=== PATIENT | female | born 1950 | race Caucasian/White ===

== ENCOUNTER 2021-08-01 10:44 | Emergency (ER) | payer MEDICARE, MEDICAID ==
[2021-08-01 10:59] VITALS: BP 112/67; PULSE 63
--- NOTE | 2021-08-01 11:08 | EDM.PDOC ---
<MarlyPrasanth Zachary - Last Filed: 08/01/21 19:53> ED HPI GENERAL MEDICAL PROBLEM - General Chief Complaint: Respiratory Problem Stated Complaint: [facility] Time Seen by Provider: 08/01/21 11:02 Source of Information: Reports: Patient, EMS, [facility] Records History Limitations: Reports: Altered Mental Status, Physical Impairment (Appears to be fairly ill.), Other (Hypoxic on room air. Maintaining sats around 91 to 92% on 2-1/2 L/min by nasal cannula) - History of Present Illness INITIAL COMMENTS - FREE TEXT/NARRATIVE: 70-year-old female presents to the ED from jail in [facility]. She presents per ambulance. She developed signs and symptoms of COVID-19 illness on July 27 and tested + July 29. She has been on oxygen at 2 L/min by nasal cannula but this morning her O2 sats were staying below 90% on 2 L and they had to increase it to 3 L. She is not eating or drinking hardly anything at all. No nausea vomiting or diarrhea. Paroxysmal nonproductive cough ,severe lethargy, with headache and myalgia. She is unvaccinated. snf nurses felt that she had altered level of consciousness this morning with more confusion. She answers all my questions appropriately although she prefers not to answer any questions and is a poor historian. CODE STATUS is listed as full code. Onset: Sudden Onset Date: 07/27/21 Duration: Day(s):, Getting Worse Location: Reports: Head (Paroxysmal nonproductive cough headache), Chest, Generalized (Generalized myalgia and weakness), Other (Decreased appetite severely) Quality: Reports: Ache, Other (Loss of appetite with weakness. Hypoxia and presents on 2 L of oxygen per nasal cannula.) Severity: Moderate Improves with: Reports: None Worsens with: Reports: None Context: Reports: Sick Contact (Apparently other personnel are sick with COVID- 19 in the [facility]). Denies: Activity, Exercise, Lifting Associated Symptoms: Reports: Confusion, Cough, Fever/Chills, Headaches, Loss of Appetite, Malaise, Shortness of Breath, Weakness. Denies: cough w sputum, Diaphoresis, Nausea/Vomiting, Rash, Seizure, Syncope Treatments PUFF IRONER: Reports: Acetaminophen, Other (see below) (Tramadol intermittently for pain relief) - Related Data Allergies Allergy/AdvReac Type Severity Reaction Status Date / Time clindamycin Allergy Severe Difficulty Verified 08/01/21 10:59 Breathing Latex, Natural Rubber Allergy Severe unknown Verified 08/01/21 10:59 sodium phosphate Allergy Severe unknown Verified 08/01/21 10:59 raspberry AdvReac Severe Diarrhea Verified 08/01/21 10:59 Home Meds: Home Meds Acetaminophen 325 mg PO Q4H PRN 08/01/21 [History] Ascorbic Acid/Multivit-Min [Emergen-C 1,000 mg Packet] 1,000 mg PO DAILY 08/01/21 [History] Bacitracin 1 dose TOP DAILY 08/01/21 [History] Baclofen 20 mg PO TID 08/01/21 [History] Dextran 70/Hypromellose [Artificial Tears] 1 each OP QID 08/01/21 [History] Diclofenac Sodium [Voltaren 1% Gel] 1 applic TOP BID 08/01/21 [History] Ferrous Sulfate 325 mg PO DAILY 08/01/21 [History] Furosemide 80 mg PO DAILY 08/01/21 [History] Gabapentin [Neurontin] 300 mg PO TID 08/01/21 [History] Potassium Chloride 30 meq PO DAILY 08/01/21 [History] Sennosides [Senna] 8.6 mg PO BID 08/01/21 [History] Sertraline HCl [Zoloft] 200 mg PO DAILY 08/01/21 [History] Simethicone 80 mg PO BEDTIME 08/01/21 [History] Sodium Chloride [Saline Nasal Mist] 1 inh NS DAILY 08/01/21 [History] Warfarin Sodium [Jantoven] 2.5 mg PO ASDIRECTED 08/01/21 [History] levETIRAcetam [Keppra] 500 mg PO BID 08/01/21 [History] Past Medical History HEENT History: Reports: Impaired Vision Other HEENT History: wears glasses, chronic rhinitis Cardiovascular History: Reports: High Cholesterol, Other (See Below) (Patient is on Coumadin daily presumably for atrial fibrillation.) Gastrointestinal History: Reports: GERD, Hiatal Hernia Other Gastrointestinal History: 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 on anticoagulation in 2016) Oncologic (Cancer) History: Reports: Breast (Left breast cancer), Other (See Below) Other Oncologic History: tumor resection due to brain tumor--resection of large meningioma benign tumor - Infectious Disease History Infectious Disease History: Reports: Novel Coronavirus - Past Surgical History Head Surgeries/Procedures: Reports: Craniotomy GI Surgical History: Reports: Other (See Below) Other GI Surgeries/Procedures: diaphragmatic hernia--hiatal hernia Female Surgical History: Reports: Breast Biopsy Other Neurological Surgeries/Procedures: Tumor resection Social & Family History - Family History Family Medical History: No Pertinent Family History - Tobacco Use Tobacco Use Status *Q: Unknown Ever Used Tobacco - Caffeine Use Caffeine Use: Reports: None - Recreational Drug Use Recreational Drug Use: No - Living Situation & Occupation Living situation: Reports: , Extended Care Facility Occupation: Retired ED ROS GENERAL - Review of Systems Review Of Systems: See Below Constitutional: Reports: Fever, Chills, Malaise, Weakness, Fatigue, Decreased Appetite HEENT: Reports: Rhinitis Respiratory: Reports: Shortness of Breath, Cough. Denies: Wheezing, Pleuritic Chest Pain, Sputum, Hemoptysis Cardiovascular: Denies: Blood Pressure Problem, Claudication, Edema, Lightheadedness, Orthopnea Endocrine: Reports: Fatigue GI/Abdominal: Reports: Abdominal Pain (Right lower quadrant abdominal pain), Anorexia. Denies: Diarrhea, Nausea, Vomiting : Reports: Other (Urine apparently is very dark in color) Musculoskeletal: Reports: Muscle Pain (Generalized myalgia with headache) Skin: Reports: No Symptoms Neurological: Reports: Confusion, Seizure (History of seizure disorder but n othing recently. She is on gabapentin and Keppra) Psychiatric: Reports: Anxiety, Confusion Hematologic/Lymphatic: Reports: No Symptoms Immunologic: Reports: No Symptoms ED EXAM, GENERAL - Physical Exam Exam: See Below Exam Limited By: Physical Impairment (Poor historian) General Appearance: Lethargic, Mild Distress, Other (Is requiring oxygen supplementation. Maintaining sats of around 90 to 92% on 2-1/2 L/min by nasal cannula. Temperature is 36.4 degrees cutaneously. Pulse 63 and sinus respiratory of 16 BP 11/27/1966) Eye Exam: Bilateral Eye: Normal Inspection (Muscular icterus or blepharal pallor), PERRL Throat/Mouth: Normal Inspection, Normal Oropharynx, Other (Tongue is dry and coated.) Head: Atraumatic ( Numerous cold sores on her lips.), Normocephalic Neck: Normal Inspection, Supple, Full Range of Motion. No: Non-Tender, Carotid Bruit, Lymphadenopathy (L), Lymphadenopathy (R) Respiratory/Chest: No Respiratory Distress, Decreased Breath Sounds (Decreased breath sounds to the posterior lung palma by 25%). No: Lungs Clear, Normal Breath Sounds, Respiratory Distress, Rhonchi, Wheezing Cardiovascular: Regular Rate, Rhythm, No Edema, No Gallop, No Murmur, No Rub. No: Normal Peripheral Pulses Peripheral Pulses: 2+: Carotid (L), Carotid (R), Posterior Tibial (L), Posterior Tibial (R), Dorsalis Pedis (L), Dorsalis Pedis (R) GI/Abdominal: Normal Bowel Sounds, Soft, No Organomegaly, Distended, Tender (The abdomen is distended slightly tympanic to percussion upper abdomen combined with mild aerophagia. Tenderness throughout the right hemiabdomen on exam. Questionable full bladder.). No: Guarding, Rigid, Rebound Back Exam: Other (Not able to examine.) Extremities: Normal Inspection, Normal Range of Motion, Non-Tender, No Pedal Edema, Other (Normal external and internal rotation of both hips and flexion of the knees.) Neurological: Oriented, CN II-XII Intact, Normal Cognition, Inattentive (She answers questions when she wants to.), Slow to Respond, Other (Unable to really assess whether she has a persistent left-sided hemiparesis or deficit and she cannot obey commands.) Psychiatric: Flat Affect Skin Exam: Warm, Dry, Intact, Normal Color, Other (Herpes simplex periorally.) #1 Interpretation EKG Date: 08/01/21 Time: 13:11 Rhythm: Other Rate (Beats/Min): 58 [place]: Normal P-Wave: Enlarged (Consider left atrial hypertrophy) QRS: Other (Decreased voltage precordial leads. Nonspecific intraventricular conduction delay.) ST-T: Other (Nonspecific T wave flattening aVF V3, V4, and V5.) EKG Interpretation Comments: Abnormal ECG Course - Radiology Interpretation Free Text/Narrative:: 70-year-old female presents to the ED from [facility] with [facility] in [place]. She developed signs and symptoms of COVID-19 illness on July 27 and was diagnosed positive on July 29. She has been on oxygen at 2 L/min by nasal cannula since the . Today apparently her O2 sats were still staying low and they had to bump her up to 3 L/min. She not eating or drinking at all. Very weak and nurses report confused. She has had a previous CVA. Apparently she also has a seizure disorder. She denies nausea vomiting or diarrhea. Severe loss of appetite. Does appear volume depleted. She will be maintained on oxygen 2-1/2 L per nasal cannula at this time. IV will be D5 normal saline at 150 mils an hour. She will have a chest x-ray and a 1 view of the abdomen performed. Labs collected including blood cultures x 2. - Re-Assessments/Exams Free Text/Narrative Re-Assessment/Exam: 08/01/21 12:01 Hematology reveals a normal white count at 5.75. Differential on the auto differential is 48.7% neutrophils. Hemoglobin is 14.7 with hematocrit of 46.6. MCV is 97.5 platelet count 209,000. Chest x-ray reveals she is primarily laying on her right side. She has Covid pneumonia involving all 3 lobes on the right side and mildly left upper lobe. Cardiac size silhouette is normal mediastinum is normal. No pleural effusion no pneumothorax. X-ray of the abdomen reveals mildly increased stool in the cecum and right hemicolon with no air-fluid levels and no sign of bowel obstruction. 08/01/21 12:46 PT is 29.0 with an INR of 2.71 PTT is 53.7 markedly elevated. D- dimer is less than 0.19. Sodium is elevated at 150 with a potassium of 3.5 chloride is 111 with a bicarb of 32 anion gap is 10.5 BUN is 32 with a creatinine of 1.5 and a GFR of only 35 i.e. stage IIIb renal insufficiency. Glucose is 97 with a calcium low at 8.1 from not being able to eat. Magnesium is 2.4. Bilirubin is 0.5 AST elevated 126 and ALT elevated 101. Alkaline phosphatase is 87. LDH is 265. CK-MB fraction is less than 0.5 troponin I is less than 0.017 C-reactive protein is 1.6 total protein 7.8 with an albumin fraction of 3.4 IV will be changed to D5 one half normal saline. Ideally she requires hospitalization. I will proceed with remdesivir intravenously and dexamethasone 6 mg IV at this time. Our hospital is on diversion with no bed availability as her most hospitals in the [facility]. Of note the urinalysis completed in the ED was within normal limits showing no signs of infection but moderate bacteria. A culture was not ordered. 08/01/21 18:03 we have been unable to find a Covid bed for her anywhere in our [facility] as well as outside of the [facility] such as in [facility]. She will therefore remain in our emergency room with hopes of a bed becoming available in our hospital tomorrow. Blood pressure is 111/64. Heart rate is 64 and sinus O2 sats are 92 to 93% on 3 L per nasal cannula. She has completed her first dose of remdesivir and dexamethasone without any problems. Hospitalist is made aware of the patient being in the emergency room and need for a bed in the hospital if 1 suddenly becomes available. Departure - Departure Disposition: DC/Tfer to [facility] Clinical Impression: COVID-19 - Discharge Information Instructions: What You Should Know About COVID-19 to Protect Yourself and Others - CDC, COVID-19 Frequently Asked Questions, COVID-19: What to Do if You Are Sick - CDC (11/15/2020) Referrals: PCP,None [Primary Care Provider] - Forms: ED Department Discharge Additional Instructions: Return to emergency department if worse. Follow-up with PCP as needed. Sepsis Event Note (ED) - Evaluation Sepsis Screening Result: No Definite Risk <Jovita Moore - Last Filed: 08/01/21 21:30> Course - Vital Signs Text/Narrative:: Patient is now satting 97% on 2 L O2. She is orientated to person and place. She is unwilling to tell me the name of our current president. She appears to be at baseline. For this reason I am sending her back [facility] jail where she was already on 2 L nasal cannula. Last Recorded V/S: Last Vital Signs Temp 97.5 F 08/01/21 10:55 Pulse 63 08/01/21 10:55 Resp 16 08/01/21 10:55 BP 112/67 08/01/21 10:55 Pulse Ox 99 08/01/21 21:08 - Orders/Labs/Meds Orders: Active Orders 24 hr Category Date Time Status Bladder Scan [RC] ASDIRECTED Care 08/01/21 11:23 Active Oxygen Therapy [RC] ASDIRECTED Care 08/01/21 11:07 Active Oxygen Therapy [RC] ASDIRECTED Care 08/01/21 11:20 Active BLOOD CULTURE [MREF] Stat Lab 08/01/21 11:25 Received BLOOD CULTURE [MREF] Stat Lab 08/01/21 11:36 Received HEPATIC FUNCTION PANEL,HFP [CHEM] DAILY Lab 08/02/21 13:00 Ordered HEPATIC FUNCTION PANEL,HFP [CHEM] DAILY Lab 08/03/21 13:00 Ordered HEPATIC FUNCTION PANEL,HFP [CHEM] DAILY Lab 08/04/21 13:00 Ordered HEPATIC FUNCTION PANEL,HFP [CHEM] DAILY Lab 08/05/21 13:00 Ordered D5 1/2 NS w/ 20 mEq/L KCl 1,000 ml Med 08/01/21 20:00 Active IV ASDIRECTED Dextrose 5%-0.9% NaCl [Dextrose 5%-Normal Saline] 1,000 Med 08/01/21 11:15 Active ml IV ASDIRECTED Blood Culture x2 Reflex Set [OM.PC] Stat Oth 08/01/21 11:07 Ordered Medication Orders Dextrose/Sodium Chloride (Dextrose 5%-Normal Saline) 1,000 mls @ 150 mls/hr IV ASDIRECTED YOVANI Last Admin: 08/01/21 11:47 Dose: 150 mls/hr Documented by: SHANNON Potassium Chloride/Dextrose/Sod Cl (D5 1/2 Ns W/ 20 Meq/L Kcl) 1,000 mls @ 75 mls/hr IV ASDIRECTED [facility] Labs: Laboratory Tests 08/01/21 08/01/21 08/01/21 Range/Units 11:25 11:25 11:25 WBC 5.75 (3.98-10.04) K/mm3 RBC 4.78 (3.98-5.22) M/mm3 Hgb 14.7 D (11.2-15.7) gm/dl Hct 46.6 H (34.1-44.9) % MCV 97.5 H D (79.4-94.8) fl MCH 30.8 (25.6-32.2) pg MCHC 31.5 L (32.2-35.5) g/dl RDW Std Deviation 54.4 H (36.4-46.3) fL Plt Count 209 D (182-369) K/mm3 MPV 11.2 (9.4-12.3) fl Neut % (Auto) 48.7 (34.0-71.1) % Lymph % (Auto) 41.2 (19.3-51.7) % [place] % (Auto) 9.7 (4.7-12.5) % Eos % (Auto) 0.2 L (0.7-5.8) Baso % (Auto) 0.2 (0.1-1.2) % Neut # (Auto) 2.80 (1.56-6.13) K/mm3 Lymph # (Auto) 2.37 (1.18-3.74) K/mm3 [place] # (Auto) 0.56 H (0.24-0.36) K/mm3 Eos # (Auto) 0.01 L (0.04-0.36) K/mm3 Baso # (Auto) 0.01 (0.01-0.08) K/mm3 PT 29.0 H (9.7-12.0) SECONDS INR 2.71 APTT 53.7 H (21.7-31.4) SECONDS D-Dimer, Quantitative (0.19-0.50) mg/L Sodium 150 H D (136-145) mEq/L Potassium 3.5 (3.5-5.1) mEq/L Chloride 111 H (98-107) mEq/L Carbon Dioxide 32 (21-32) mEq/L Anion Gap 10.5 (5-15) BUN 32 H (7-18) mg/dL Creatinine 1.5 H (0.55-1.02) mg/dL Est Cr Clr Drug Dosing 31.00 mL/min Estimated GFR (MDRD) 35 (>60) mL/min BUN/Creatinine Ratio 21.3 H (14-18) Glucose 97 (70-99) mg/dL Calcium 8.1 L (8.5-10.1) mg/dL Magnesium 2.4 (1.8-2.4) mg/dL Total Bilirubin 0.5 (0.2-1.0) mg/dL Direct Bilirubin (0.0-0.2) mg/dl Indirect Bilirubin AST 126 H (15-37) U/L ALT 101 H (14-59) U/L Alkaline Phosphatase 87 (46-116) U/L Lactate Dehydrogenase 265 H (81-234) U/L CK-MB (CK-2) < 0.5 (0-3.6) ng/ml Troponin I < 0.017 (0.00-0.056) ng/mL C-Reactive Protein 1.6 H* (<1.0) mg/dL NT-Pro-B Natriuret Pep (0-125) pg/mL Total Protein 7.8 (6.4-8.2) g/dl Albumin 3.4 (3.4-5.0) g/dl Globulin 4.4 gm/dL Albumin/Globulin Ratio 0.8 L (1-2) Urine Color (Yellow) Urine Appearance (Clear) Urine pH (5.0-8.0) Ur Specific [place] (1.005-1.030) Urine Protein (Negative) Urine Glucose (UA) (Negative) Urine Ketones (Negative) Urine Occult Blood (Negative) Urine Nitrite (Negative) Urine Bilirubin (Negative) Urine Urobilinogen (0.2-1.0) Ur Leukocyte Esterase (Negative) Urine RBC (0-5) /hpf Urine WBC (0-5) /hpf Ur Squamous Epith Cells (0-5) /hpf Urine Bacteria (FEW) /hpf Urine Mucus (FEW) /hpf 08/01/21 08/01/21 08/01/21 Range/Units 11:25 11:25 12:35 WBC (3.98-10.04) K/mm3 RBC (3.98-5.22) M/mm3 Hgb (11.2-15.7) gm/dl Hct (34.1-44.9) % MCV (79.4-94.8) fl MCH (25.6-32.2) pg MCHC (32.2-35.5) g/dl RDW Std Deviation (36.4-46.3) fL Plt Count (182-369) K/mm3 MPV (9.4-12.3) fl Neut % (Auto) (34.0-71.1) % Lymph % (Auto) (19.3-51.7) % [place] % (Auto) (4.7-12.5) % Eos % (Auto) (0.7-5.8) Baso % (Auto) (0.1-1.2) % Neut # (Auto) (1.56-6.13) K/mm3 Lymph # (Auto) (1.18-3.74) K/mm3 [place] # (Auto) (0.24-0.36) K/mm3 Eos # (Auto) (0.04-0.36) K/mm3 Baso # (Auto) (0.01-0.08) K/mm3 PT (9.7-12.0) SECONDS INR APTT (21.7-31.4) SECONDS D-Dimer, Quantitative < 0.19 L (0.19-0.50) mg/L Sodium (136-145) mEq/L Potassium (3.5-5.1) mEq/L Chloride (98-107) mEq/L Carbon Dioxide (21-32) mEq/L Anion Gap (5-15) BUN (7-18) mg/dL Creatinine (0.55-1.02) mg/dL Est Cr Clr Drug Dosing mL/min Estimated GFR (MDRD) (>60) mL/min BUN/Creatinine Ratio (14-18) Glucose (70-99) mg/dL Calcium (8.5-10.1) mg/dL Magnesium (1.8-2.4) mg/dL Total Bilirubin (0.2-1.0) mg/dL Direct Bilirubin (0.0-0.2) mg/dl Indirect Bilirubin AST (15-37) U/L ALT (14-59) U/L Alkaline Phosphatase (46-116) U/L Lactate Dehydrogenase (81-234) U/L CK-MB (CK-2) (0-3.6) ng/ml Troponin I (0.00-0.056) ng/mL C-Reactive Protein (<1.0) mg/dL NT-Pro-B Natriuret Pep 111 (0-125) pg/mL Total Protein (6.4-8.2) g/dl Albumin (3.4-5.0) g/dl Globulin gm/dL Albumin/Globulin Ratio (1-2) Urine Color Yellow (Yellow) Urine Appearance Clear (Clear) Urine pH 5.5 (5.0-8.0) Ur Specific [place] 1.020 (1.005-1.030) Urine Protein Trace H (Negative) Urine Glucose (UA) Negative (Negative) Urine Ketones Negative (Negative) Urine Occult Blood Negative (Negative) Urine Nitrite Negative (Negative) Urine Bilirubin Negative (Negative) Urine Urobilinogen 0.2 (0.2-1.0) Ur Leukocyte Esterase Negative (Negative) Urine RBC 0-5 (0-5) /hpf Urine WBC 0-5 (0-5) /hpf Ur Squamous Epith Cells 0-5 (0-5) /hpf Urine Bacteria Moderate H (FEW) /hpf Urine Mucus Few (FEW) /hpf 08/01/21 Range/Units 12:35 WBC (3.98-10.04) K/mm3 RBC (3.98-5.22) M/mm3 Hgb (11.2-15.7) gm/dl Hct (34.1-44.9) % MCV (79.4-94.8) fl MCH (25.6-32.2) pg MCHC (32.2-35.5) g/dl RDW Std Deviation (36.4-46.3) fL Plt Count (182-369) K/mm3 MPV (9.4-12.3) fl Neut % (Auto) (34.0-71.1) % Lymph % (Auto) (19.3-51.7) % [place] % (Auto) (4.7-12.5) % Eos % (Auto) (0.7-5.8) Baso % (Auto) (0.1-1.2) % Neut # (Auto) (1.56-6.13) K/mm3 Lymph # (Auto) (1.18-3.74) K/mm3 [place] # (Auto) (0.24-0.36) K/mm3 Eos # (Auto) (0.04-0.36) K/mm3 Baso # (Auto) (0.01-0.08) K/mm3 PT (9.7-12.0) SECONDS INR APTT (21.7-31.4) SECONDS D-Dimer, Quantitative (0.19-0.50) mg/L Sodium (136-145) mEq/L Potassium (3.5-5.1) mEq/L Chloride (98-107) mEq/L Carbon Dioxide (21-32) mEq/L Anion Gap (5-15) BUN (7-18) mg/dL Creatinine (0.55-1.02) mg/dL Est Cr Clr Drug Dosing mL/min Estimated GFR (MDRD) (>60) mL/min BUN/Creatinine Ratio (14-18) Glucose (70-99) mg/dL Calcium (8.5-10.1) mg/dL Magnesium (1.8-2.4) mg/dL Total Bilirubin 0.6 (0.2-1.0) mg/dL Direct Bilirubin 0.30 H (0.0-0.2) mg/dl Indirect Bilirubin 0.30 AST 127 H (15-37) U/L ALT 97 H (14-59) U/L Alkaline Phosphatase 86 (46-116) U/L Lactate Dehydrogenase (81-234) U/L CK-MB (CK-2) (0-3.6) ng/ml Troponin I (0.00-0.056) ng/mL C-Reactive Protein (<1.0) mg/dL NT-Pro-B Natriuret Pep (0-125) pg/mL Total Protein 7.8 (6.4-8.2) g/dl Albumin 3.4 (3.4-5.0) g/dl Globulin 4.4 gm/dL Albumin/Globulin Ratio 0.8 L (1-2) Urine Color (Yellow) Urine Appearance (Clear) Urine pH (5.0-8.0) Ur Specific [place] (1.005-1.030) Urine Protein (Negative) Urine Glucose (UA) (Negative) Urine Ketones (Negative) Urine Occult Blood (Negative) Urine Nitrite (Negative) Urine Bilirubin (Negative) Urine Urobilinogen (0.2-1.0) Ur Leukocyte Esterase (Negative) Urine RBC (0-5) /hpf Urine WBC (0-5) /hpf Ur Squamous Epith Cells (0-5) /hpf Urine Bacteria (FEW) /hpf Urine Mucus (FEW) /hpf Meds: Medications Generic Name Dose Route Start Last Admin Trade Name Freq PRN Reason Stop Dose Admin Dextrose/Sodium Chloride 1,000 mls @ 150 mls/hr 08/01/21 11:15 08/01/21 11:47 Dextrose 5%-Normal Saline IV 150 mls/hr ASDIRECTED YOVANI Administration Potassium Chloride/Dextrose/Sod Cl 1,000 mls @ 75 mls/hr 08/01/21 20:00 D5 1/2 Ns W/ 20 Meq/L Kcl IV ASDIRECTED YOVANI Discontinued Medications Generic Name Dose Route Start Last Admin Trade Name Freq PRN Reason Stop Dose Admin Dexamethasone 6 mg 08/01/21 13:30 08/01/21 14:02 Dexamethasone 10 Mg/Ml Sdv IV 08/01/21 13:31 6 mg ONETIME ONE Administration Remdesivir 200 mg/ Sodium 250 mls @ 250 mls/hr 08/01/21 13:45 08/01/21 13:59 Chloride IV 08/01/21 14:44 250 mls/hr ONETIME ONE Administration Departure - Departure Time of Disposition: 21:28 Condition: Good Sepsis Event Note (ED) - Focused Exam Vital Signs: Vital Signs Temp Pulse Resp BP Pulse Ox Pulse Ox 08/01/21 21:08 99 08/01/21 11:20 92 L 08/01/21 11:07 91 L 08/01/21 10:55 97.5 F 63 16 112/67 92 L
[2021-08-01] MEDS ORDERED: Dextrose 5%-0.9% NaCl 1,000 ML IV SCH (11:15)
--- NOTE | 2021-08-01 12:26 | CR ---
Chest: AP view of the chest was obtained. Comparison: Prior chest x-ray 08/27/16. Heart size is normal. Tortuous thoracic aorta is seen. Possible increased density within the right lung. Left lung appears to be clear. Bony structures show nothing acute. Impression: 1. Equivocal mild COVID pneumonia within the right lung. Diagnostic code #3
--- NOTE | 2021-08-01 12:39 | CR ---
Abdomen: Supine view of the abdomen was obtained. Comparison: No prior abdominal x-ray, prior CT abdomen and pelvis study of 08/27/16. Calcifications are seen within the pelvis compatible with phleboliths. Mild joint space narrowing is seen within the right hip. Slight scoliosis is noted within the spine. Bowel gas pattern is normal. No discrete soft tissue abnormality is appreciated. Impression: 1. Findings as noted above. Nothing acute is appreciated. Diagnostic code #2
[2021-08-01] MEDS ORDERED: REMDESIVIR 200 MG in Sodium Chloride 0.9% 250 ML IV ONE ×2 (12:49→13:45)
[2021-08-01] MEDS ORDERED: Dexamethasone 4 MG/ML 5 ML MDV IV ONE (12:50)
[2021-08-01] MEDS ORDERED: Dexamethasone 10 MG/ML SDV IV ONE (13:30)
[2021-08-01] MEDS ORDERED: D5 1/2 NS w/ 20 mEq/L KCl 1,000 ML IV SCH (20:00)
== END 2021-08-01 23:00 ==
LOC: JD.ED 10:44
DX: U07.1 COVID-19 (principal); M19.90 Unspecified osteoarthritis, unspecified site; E66.9 Obesity, unspecified; Z68.34 Body mass index [BMI] 34.0-34.9, adult; Z86.73 Personal history of transient ischemic attack (TIA), and cerebral infarction without residual deficits; Z79.01 Long term (current) use of anticoagulants; Z88.1 Allergy status to other antibiotic agents; Z91.040 Latex allergy status; Z88.8 Allergy status to other drugs, medicaments and biological substances; Z91.018 Allergy to other foods; Z79.899 Other long term (current) drug therapy; R06.02 Shortness of breath
CPT/HCPCS: 36415; 71045; 74018; 80053; 80076; 81001; 82553; 83615; 83735; 83880; 84484; 85025; 85379; 85610; 85730; 86140; 87040; 93005; 96374; 99285; J1100; J7042; J7050; 93010; 99284